=== PATIENT | male | born 1950 | race Caucasian/White ===

== ENCOUNTER 2023-04-30 12:54 | Outpatient (CLI) | payer MEDICARE ==
[2023-04-30 16:37] LABS: Hematocrit 46.5 % (38.8-50.0)
[2023-04-30 17:00] LABS: Anion Gap 15 mmol/L (10-20); BUN (Urea Nitrogen) 22 mg/dL (8.4-25.7); Calc. Creatinine Clearance 0 mL/min (70-130); Calcium 10.1 mg/dL (7.8-10.44); Carbon Dioxide 28 mmol/L (23-31); Chloride 103 mmol/L (98-107); Estimated GFR 77; Glucose 75 mg/dL (80-115); Potassium 3.9 mmol/L (3.5-5.1); Sodium 142 mmol/L (136-145)
== END 2023-04-30 12:55 | disposition home or self-care (01) ==
LOC: CSHLAB 12:54
PROVIDERS: ATTEND Otolaryngology Plastic Surgery within the Head & Neck
DX: Z01.818 Encounter for other preprocedural examination (principal); E21.3 Hyperparathyroidism, unspecified; D35.1 Benign neoplasm of parathyroid gland
CPT/HCPCS: 80048; 85014; 85018; 93005; 93010